=== PATIENT | female | born 1965 | race Two or more races ===

== ENCOUNTER 2017-08-18 08:59 | Emergency (ER) | payer OTHER ==
[~2017-08-18] VITALS: Ht 165.1 cm; Wt 70.3 kg
[2017-08-18 09:00] VITALS: BP 146/92
== END 2017-08-18 09:30 | disposition home or self-care (01) ==
LOC: ER 09:05
DX: H61.21 Impacted cerumen, right ear (principal); Z88.6 Allergy status to analgesic agent
CPT/HCPCS: 99282; A4606; Z7610

== ENCOUNTER 2018-09-17 13:38 | Emergency (ER) | payer OTHER ==
[~2018-09-17] VITALS: Ht 167.6 cm; Wt 81.6 kg
[2018-09-17 13:38] VITALS: BP 138/87
== END 2018-09-17 14:35 | disposition home or self-care (01) ==
LOC: ER 13:39
DX: T81.30XA Disruption of wound, unspecified, initial encounter (principal); Z88.6 Allergy status to analgesic agent; Y83.8 Other surgical procedures as the cause of abnormal reaction of the patient, or of later complication, without mention of misadventure at the time of the procedure; Y92.89 Other specified places as the place of occurrence of the external cause